=== PATIENT | female | born 1980 | race Caucasian/White ===

== ENCOUNTER 2019-02-07 10:19 | Outpatient (CLI) ==
[2015-04-23 21:29] VITALS: BMI 28.1
--- NOTE | 2019-02-07 10:57 | DI ---
EXAM: Chest two views HISTORY: Cough, smoker COMPARISON: None TECHNIQUE: Two views of the chest were performed FINDINGS: The lungs are clear. There is no pleural effusion or pneumothorax. The heart is normal i n size. The mediastinal contour is normal. There are no acute abnormalities of the bones. IMPRESSION: No acute cardiopulmonary process.
--- NOTE | 2019-02-07 11:09 | DI ---
EXAM: Cervical spine three view HISTORY: Hand numbness COMPARISON: None TECHNIQUE: Three views cervical spine were performed FINDINGS: C7 partially obscured on the lateral view. Mild reversal normal cervical lordosis. Verte bral bodies normal height. No fracture or subluxation identified. Marginal osteophyte formation C5- C6. Mild intervertebral disc space narrowing C5-C6. Prevertebral soft tissues appear normal. IMPRESSION: 1. Chronic discogenic degenerative disease C5-C6. 2. Mild reversal normal cervical lordosis.
== END 2019-02-07 10:20 | disposition home or self-care (01) ==
LOC: RAD 10:19
PROVIDERS: ATTEND Internal Medicine
DX: R20.0 Anesthesia of skin (principal); R05 Cough; F17.210 Nicotine dependence, cigarettes, uncomplicated